=== PATIENT | male | born 1965 | race Caucasian/White ===

== ENCOUNTER 2022-08-18 00:58 | Emergency (ER) | payer SELFPAY ==
[~2022-08-18] VITALS: Ht 175.3 cm; Wt 81.0 kg
[2022-08-18 01:02] VITALS: BP 148/78; PULSE 79; RESP 18; TEMP 98.2
== END 2022-08-18 04:01 | disposition left against medical advice (07) ==
LOC: ER 00:58
DX: Z53.21 Procedure and treatment not carried out due to patient leaving prior to being seen by health care provider (principal)
CPT/HCPCS: 99281